=== PATIENT | male | born 1960 | race African-American/Black ===

== ENCOUNTER 2019-08-11 | Emergency (ER) | payer OTHER ==
[~2019-08-11] MED LIST: AMOX/K CLAV875 M1 PO; POLYTRIM OU; VOSOL2 % OT
[2019-08-11 01:28] LABS: IMMATURE GRANULOCYTES 0.3 % (0.0-5.0); MEAN CELL VOLUME 79.9 fL CALC (80.0-100.0); MEAN CORPUSCULAR HGB 26.3 pG CALC (26.0-32.0); MEAN CORPUSCULAR HGB CONC 32.9 g/L CALC (32.0-36.0); NEUT# 4.02 thou/uL (1.82-7.42); RED BLOOD COUNT 4.38 mill/uL (4.70-6.10); RED CELL DISTRI WIDTH 13.1 % (11.5-15.5)
[2019-08-11 01:31] LABS: HEMOGLOBIN 11.5 g/dl (14.0-18.0)
[2019-08-11 01:32] LABS: URINE BILIRUBIN - DIPSTICK NEGATIVE (NEGATIVE); URINE BLOOD DIPSTICK MODERATE (NEGATIVE); URINE COLOR YELLOW; URINE GLUCOSE - DIPSTICK >=1000 mg/dL (NEGATIVE); URINE KETONE NEGATIVE (NEGATIVE); URINE LEUK ESTERASE NEGATIVE (NEGATIVE); URINE PROTEIN - DIPSTICK 100 mg/dL (NEG-TRACE); URINE SPECIFIC GRAVITY 1.015; URINE UROBILINOGEN - DIPSTICK 0.2 E.U./dL (0.2)
[2019-08-11 01:35] LABS: COCAINE NEGATIVE (NEGATIVE); METHADONE NEGATIVE (NEGATIVE); TETRAHYDROCANNABIONOL NEGATIVE (NEGATIVE); TRICYLIC ANTIDEPRESSANTS NEGATIVE (NEGATIVE); URINE NITRITE - DIPSTICK NEGATIVE (Negative)
[2019-08-11 01:36] LABS: BARBITURATES NEGATIVE (NEGATIVE); OXCYCODONE NEGATIVE (NEGATIVE)
[2019-08-11 01:39] LABS: URINE BACTERIA FEW hpf; URINE EPITHELIAL CELLS FEW EPI/hpf (0-FEW)
[2019-08-11 02:03] LABS: ALBUMIN 3.9 g/dL (3.2-5.0); CREATININE 1.6 mg/dL (0.7-1.3); TOTAL PROTEIN 8.2 g/dL (6.3-8.2)
[2019-08-11 02:14] LABS: POTASSIUM 3.1 mmol/l (3.5-5.1)
== END 2019-08-11 03:38 | disposition short-term general hospital (02) | DRG 101 ==
PROVIDERS: Emergency Medicine
DX: R56.9 Unspecified convulsions (principal); I10 Essential (primary) hypertension; E11.65 Type 2 diabetes mellitus with hyperglycemia; R79.89 Other specified abnormal findings of blood chemistry; Z91.14 Patient's other noncompliance with medication regimen

== ENCOUNTER 2020-09-01 17:55 | Emergency (ER) | payer OTHER ==
[~2020-09-01] VITALS: Ht 175.3 cm; Wt 78.9 kg
[2020-09-01 18:39] LABS: HEMATOCRIT 39.3 % (39.0-50.0); HEMOGLOBIN 12.6 g/dl (14.0-18.0); MEAN CELL VOLUME 83.8 fL CALC (80.0-100.0); MEAN CORPUSCULAR HGB 26.9 pG CALC (26.0-32.0); MEAN CORPUSCULAR HGB CONC 32.1 g/dL CAL (32.0-36.0); NEUT# 3.26 thou/uL (1.82-7.42); RED BLOOD COUNT 4.69 mill/uL (4.70-6.10); RED CELL DISTRI WIDTH 13.2 % (11.5-15.5)
[2020-09-01 18:55] LABS: ALBUMIN 3.4 g/dL (3.2-5.0); MAGNESIUM 1.8 mg/dL (1.6-2.3)
[2020-09-01 18:58] LABS: ACT PARTIAL THROMBO TIME 26.5 SECONDS (20.0-32.5); CREATININE 3.1 mg/dL (0.7-1.3); PROTHROMBIN TIME 10.4 SECONDS (9.0-12.5)
[2020-09-01 18:59] LABS: BILIRUBIN, TOTAL 0.4 mg/dL (0.0-1.4)
[2020-09-01] MEDS ORDERED: CLONIDINE0.1 MG PO (18:59)
[2020-09-01] MEDS ORDERED: POTASSIUM CHLO20 ME2 PO (18:59)
[2020-09-01 19:00] LABS: POTASSIUM 7.1 mmol/l (3.5-5.1)
[2020-09-01] MEDS ORDERED: MAXZIDE-2537.5 MG/TA PO (19:00)
[2020-09-01] MEDS ORDERED: LOPRESSOR50 M1 PO (19:00)
[2020-09-01] MEDS ORDERED: LOSARTAN POTASS50 MG PO (19:01)
[2020-09-01] MEDS ORDERED: NORVASC5 M1 PO (19:01)
[2020-09-01] MEDS ORDERED: EC ASPIRIN325 MG PO (19:02)
[2020-09-01 19:34] VITALS: BP 189/105
== END 2020-09-01 19:36 | disposition short-term general hospital (02) | DRG 66 ==
LOC: ED 17:55
DX: I63.9 Cerebral infarction, unspecified (principal); R47.01 Aphasia; G83.14 Monoplegia of lower limb affecting left nondominant side; R29.712 NIHSS score 12; I10 Essential (primary) hypertension; E11.9 Type 2 diabetes mellitus without complications; F17.200 Nicotine dependence, unspecified, uncomplicated; Z20.822 Contact with and (suspected) exposure to COVID-19

== ENCOUNTER 2021-04-15 19:55 | Emergency (ER) | payer OTHER ==
[~2021-04-15] VITALS: Ht 175.3 cm; Wt 89.0 kg
[~2021-04-15 19:55] MED LIST changes: +CLONIDINE0.1 MG PO; +EC ASPIRIN325 MG PO; +LOPRESSOR50 M1 PO; +LOSARTAN POTASS50 MG PO; +MAXZIDE-2537.5 MG/TA PO; +NORVASC5 M1 PO; +POTASSIUM CHLO20 ME2 PO
[2021-04-15 20:19] VITALS: BP 222/109
[2021-04-15] MEDS ORDERED: CLONIDINE0.1 MG PO (21:17)
[2021-04-15] MEDS ORDERED: LASIX 40 MG TAB40 MG PO (21:18)
[2021-04-15] MEDS ORDERED: NIFEDIPINE60 MG PO (21:18)
[2021-04-15] MEDS ORDERED: HYDRALAZINE100 MG PO (21:18)
[2021-04-15] MEDS ORDERED: GABAPENTIN100 MG PO (21:19)
[2021-04-15] MEDS ORDERED: LIPITOR80 M1 PO (21:19)
[2021-04-15] MEDS ORDERED: GLIPIZIDE ER5 MG PO (21:20)
[2021-04-15 21:35] LABS: HEMATOCRIT 34.9 % (39.0-50.0); IMMATURE GRANULOCYTES 0.4 % (0.0-5.0); MEAN CELL VOLUME 86.6 fL CALC (80.0-100.0); MEAN CORPUSCULAR HGB 27.3 pG CALC (26.0-32.0); MEAN CORPUSCULAR HGB CONC 31.5 g/dL CAL (32.0-36.0); NEUT# 3.41 thou/uL (1.82-7.42); RED BLOOD COUNT 4.03 mill/uL (4.70-6.10); RED CELL DISTRI WIDTH 13.1 % (11.5-15.5)
[2021-04-15 21:43] LABS: ALBUMIN 4.2 g/dL (3.2-5.0); CREATININE 3.8 mg/dL (0.7-1.3); POTASSIUM 4.4 mmol/l (3.5-5.1); TOTAL PROTEIN 8.2 g/dL (6.3-8.2)
[2021-04-15 21:44] LABS: BILIRUBIN, TOTAL 0.7 mg/dL (0.0-1.4)
[2021-04-21] MEDS ORDERED: LABETALOL HYDR200 MG PO (10:43)
[2021-04-21] MEDS ORDERED: ASPIRIN81 MG PO (10:44)
[2021-04-21] MEDS ORDERED: CLONIDINE0.1 MG PO (10:44)
[2021-04-21] MEDS ORDERED: NIFEDIPINE60 MG PO (10:44)
== END 2021-04-16 00:30 | disposition home or self-care (01) | DRG 305 ==
LOC: ED 19:55 → ED-I 20:37 → ED 20:37 → ED-I 21:47 → ED 04-16 00:30
PROVIDERS: Emergency Medicine
DX: I10 Essential (primary) hypertension (principal); E11.9 Type 2 diabetes mellitus without complications; F17.200 Nicotine dependence, unspecified, uncomplicated; Z79.84 Long term (current) use of oral hypoglycemic drugs; Z20.822 Contact with and (suspected) exposure to COVID-19

== ENCOUNTER → 2021-04-16 | Outpatient (REF) | payer OTHER ==
[~2021-04-16] MED LIST changes: +ASPIRIN81 MG PO; +GABAPENTIN100 MG PO; +GLIPIZIDE ER5 MG PO; +HYDRALAZINE100 MG PO; +LABETALOL HYDR200 MG PO; +LASIX 40 MG TAB40 MG PO; +LIPITOR80 M1 PO; +NIFEDIPINE60 MG PO
== END | disposition home or self-care (01) | DRG 684 ==
LOC: LAB 12:17
PROVIDERS: ATTEND Internal Medicine Nephrology
DX: N18.5 Chronic kidney disease, stage 5 (principal); K71.8 Toxic liver disease with other disorders of liver

== ENCOUNTER 2021-05-17 10:12 | Emergency (ER) | payer OTHER ==
[~2021-05-17] VITALS: Ht 152.4 cm; Wt 70.0 kg
[2021-05-17 11:03] LABS: MEAN CELL VOLUME 87.6 fL CALC (80.0-100.0); MEAN CORPUSCULAR HGB 27.4 pG CALC (26.0-32.0); MEAN CORPUSCULAR HGB CONC 31.3 g/dL CAL (32.0-36.0); NEUT# 3.74 thou/uL (1.82-7.42); RED BLOOD COUNT 2.26 mill/uL (4.70-6.10); RED CELL DISTRI WIDTH 12.9 % (11.5-15.5)
[2021-05-17 11:15] LABS: ALBUMIN 3.7 g/dL (3.2-5.0); TOTAL PROTEIN 7.1 g/dL (6.3-8.2)
[2021-05-17 11:17] LABS: BILIRUBIN, TOTAL 0.3 mg/dL (0.0-1.4); HEMATOCRIT 19.8 % (39.0-50.0); HEMOGLOBIN 6.2 g/dl (14.0-18.0)
[2021-05-17 11:18] LABS: CREATININE 5.1 mg/dL (0.7-1.3)
[2021-05-17 12:55] VITALS: BP 120/67
[2021-05-17 13:55] VITALS: BP 120/68
[2021-05-17 14:45] VITALS: BP 126/71
[2021-05-17 15:00] VITALS: BP 126/71
== END 2021-05-17 15:00 | disposition short-term general hospital (02) | DRG 812 ==
LOC: ED 10:12
PROVIDERS: Family Medicine
PROC: 30233N1 Transfusion of Nonautologous Red Blood Cells into Peripheral Vein, Percutaneous Approach (ICD-10-PCS; principal; 2021-05-17)
PROC: 30233N1 Transfusion of Nonautologous Red Blood Cells into Peripheral Vein, Percutaneous Approach (ICD-10-PCS; 2021-05-17)
DX: D64.9 Anemia, unspecified (principal); I12.9 Hypertensive chronic kidney disease with stage 1 through stage 4 chronic kidney disease, or unspecified chronic kidney disease; E11.22 Type 2 diabetes mellitus with diabetic chronic kidney disease; N18.9 Chronic kidney disease, unspecified; F17.200 Nicotine dependence, unspecified, uncomplicated; Z79.84 Long term (current) use of oral hypoglycemic drugs
CPT/HCPCS: P9016

== ENCOUNTER 2021-12-20 16:16 | Emergency (ER) | payer OTHER ==
[2021-12-20] VITALS (13 sets, daily range): BP systolic 104–132; BP diastolic 53–69
[~2021-12-20] VITALS: Ht 175.3 cm; Wt 70.0 kg
[2021-12-20 17:19] LABS: IMMATURE GRANULOCYTES 0.6 % (0.0-5.0); MEAN CELL VOLUME 88.9 fL CALC (80.0-100.0); MEAN CORPUSCULAR HGB 29.5 pG CALC (26.0-32.0); MEAN CORPUSCULAR HGB CONC 33.1 g/dL CAL (32.0-36.0); NEUT# 5.91 thou/uL (1.82-7.42); RED BLOOD COUNT 1.9 mill/uL (4.70-6.10); RED CELL DISTRI WIDTH 13.6 % (11.5-15.5)
[2021-12-20 17:21] LABS: HEMOGLOBIN 5.6 g/dl (14.0-18.0)
[2021-12-20 17:22] LABS: HEMATOCRIT 16.9 % (39.0-50.0)
[2021-12-20 17:31] LABS: ALBUMIN 3.9 g/dL (3.2-5.0); BILIRUBIN, TOTAL 0.4 mg/dL (0.0-1.4)
[2021-12-20 17:33] LABS: CREATININE 3.1 mg/dL (0.7-1.3); POTASSIUM 3.3 mmol/l (3.5-5.1)
== END 2021-12-20 22:00 | DRG 811 ==
LOC: ED 16:16
PROVIDERS: Nurse Practitioner
PROC: 30233N1 Transfusion of Nonautologous Red Blood Cells into Peripheral Vein, Percutaneous Approach (ICD-10-PCS; principal; 2021-12-20)
PROC: 30233N1 Transfusion of Nonautologous Red Blood Cells into Peripheral Vein, Percutaneous Approach (ICD-10-PCS; 2021-12-20)
DX: D64.9 Anemia, unspecified (principal); N18.6 End stage renal disease; I12.0 Hypertensive chronic kidney disease with stage 5 chronic kidney disease or end stage renal disease; R19.5 Other fecal abnormalities; E11.22 Type 2 diabetes mellitus with diabetic chronic kidney disease; F17.200 Nicotine dependence, unspecified, uncomplicated; Z99.2 Dependence on renal dialysis; Z79.84 Long term (current) use of oral hypoglycemic drugs; Z20.822 Contact with and (suspected) exposure to COVID-19
CPT/HCPCS: P9016

== ENCOUNTER 2022-08-12 13:18 | Emergency (ER) | payer OTHER, MEDICARE ==
[~2022-08-12] VITALS: Ht 175.3 cm; Wt 85.0 kg
[2022-08-12] VITALS (22 sets, daily range): BP systolic 126–161; BP diastolic 82–92
[2022-08-12 13:57] LABS: BASO% 0.3 % (0-3); EOS% 1.3 % (0-8); IMMATURE GRANULOCYTES 0.8 % (0.0-5.0); LYMPH% 7.4 % (15-41); MEAN CELL VOLUME 87.9 fL CALC (80.0-100.0); MEAN CORPUSCULAR HGB 29.8 pG CALC (26.0-32.0); MEAN CORPUSCULAR HGB CONC 33.9 g/dL CAL (32.0-36.0); MONO% 9.2 % (2-13); NEUT# 5.72 thou/uL (1.82-7.42); RED BLOOD COUNT 3.46 mill/uL (4.70-6.10); RED CELL DISTRI WIDTH 13.2 % (11.5-15.5)
[2022-08-12 13:59] LABS: HEMATOCRIT 30.4 % (39.0-50.0); HEMOGLOBIN 10.3 g/dl (14.0-18.0)
[2022-08-12 14:20] LABS: ALBUMIN 4.4 g/dL (3.2-5.0)
[2022-08-12 14:26] LABS: BILIRUBIN, TOTAL 0.6 mg/dL (0.0-1.4); POTASSIUM 4.6 mmol/l (3.5-5.1); TOTAL PROTEIN 9.4 g/dL (6.3-8.2)
[2022-08-12 14:30] LABS: CREATININE 13.4 mg/dL (0.7-1.3)
== END 2022-08-12 18:54 | DRG 698 ==
LOC: ED 13:18
PROVIDERS: Family Medicine
DX: T82.49XA Other complication of vascular dialysis catheter, initial encounter (principal); N18.6 End stage renal disease; I12.0 Hypertensive chronic kidney disease with stage 5 chronic kidney disease or end stage renal disease; Z99.2 Dependence on renal dialysis; E11.22 Type 2 diabetes mellitus with diabetic chronic kidney disease

== ENCOUNTER 2023-10-03 06:24 | Emergency (ER) | payer OTHER, MEDICARE ==
[~2023-10-03] VITALS: Ht 175.3 cm; Wt 107.7 kg
[2023-10-03] VITALS (40 sets, daily range): BP systolic 91–147; BP diastolic 51–121
[2023-10-03] MEDS ORDERED: amioDARONE HCl 150 MG/3 ML SDV IV ONE (06:39)
[2023-10-03] MEDS ORDERED: SODIUM CHLORIDE 250 ML IV ONE (06:40)
[2023-10-03] MEDS ORDERED: SODIUM CHLORIDE 0.9% 500 ML IV ONE ×2 (06:45→07:00)
[2023-10-03] MEDS ORDERED: amioDARONE HCl 450 MG in SODIUM CHLORIDE 250 ML IV ONE (06:45)
[2023-10-03] MEDS ORDERED: PROPOFOL 100 ML IV ONE (06:50)
[2023-10-03 06:54] LABS: BASO% 0.4 % (0-3); EOS% 2.6 % (0-8); HEMATOCRIT 39.2 % (39.0-50.0); HEMOGLOBIN 11.8 g/dl (14.0-18.0); IMMATURE GRANULOCYTES 1.1 % (0.0-5.0); LYMPH% 35.3 % (15-41); MEAN CELL VOLUME 99.7 fL CALC (80.0-100.0); MEAN CORPUSCULAR HGB CONC 30.1 g/dL CAL (32.0-36.0); MONO% 6.1 % (2-13); NEUT# 4.06 thou/uL (1.82-7.42); NEUT% 54.5 % (42-76); RED BLOOD COUNT 3.93 mill/uL (4.70-6.10); RED CELL DISTRI WIDTH 16.8 % (11.5-15.5)
[2023-10-03 07:17] LABS: POTASSIUM 4.9 mmol/l (3.5-5.1); TOTAL PROTEIN 8.2 g/dL (6.3-8.2)
[2023-10-03] MEDS ORDERED: PIPERACILLIN Sodium-Tazobactam 3.375 GM in SODIUM CHLORIDE 0.9% 100 ML IV ONE (07:20)
[2023-10-03 07:22] LABS: ACT PARTIAL THROMBO TIME 29.4 SECONDS (20.0-32.5); PROTHROMBIN TIME 12.9 SECONDS (9.0-12.5)
[2023-10-03 07:24] LABS: INTERNATIONAL NORMALIZED RATIO 1.4 RATIO (0.7-1.3)
[2023-10-03 07:28] LABS: BILIRUBIN, TOTAL 1.1 mg/dL (0.2-1.3); CREATININE 7.9 mg/dL (0.7-1.3); MAGNESIUM 2.4 mg/dL (1.6-2.3)
[2023-10-03] MEDS ORDERED: SODIUM CHLORIDE 0.9% 1,000 ML BAG IV ONE (07:29)
[2023-10-03] MEDS ORDERED: EPINEPHrine HCL 0.1 MG/ML 10 ML SYR IV ONE (07:29)
[2023-10-03 07:35] LABS: URINE BILIRUBIN - DIPSTICK Negative (NEGATIVE); URINE BLOOD DIPSTICK Trace-intact (NEGATIVE); URINE GLUCOSE - DIPSTICK Negative (NEGATIVE); URINE KETONE Negative (NEGATIVE); URINE LEUK ESTERASE Negative (NEGATIVE); URINE NITRITE - DIPSTICK Negative (Negative); URINE PROTEIN - DIPSTICK >=300 mg/dL (NEG-TRACE)
[2023-10-03 07:41] LABS: URINE COLOR Yellow
[2023-10-03 08:03] LABS: URINE RBC 0-2 RBC/hpf (0-5)
[2023-10-03 08:04] LABS: URINE SPERM MODERATE hpf (NONE-RARE)
[2023-10-03 09:02] LABS: D-DIMER > 35.20 mg/L (0.19-0.60)
== END 2023-10-03 08:10 | DRG 308 ==
LOC: ED 06:24
PROVIDERS: Family Medicine
PROC: 0BH17EZ Insertion of Endotracheal Airway into Trachea, Via Natural or Artificial Opening (ICD-10-PCS; principal; 2023-10-03)
PROC: 5A1935Z Respiratory Ventilation, Less than 24 Consecutive Hours (ICD-10-PCS; 2023-10-03)
PROC: 06HY33Z Insertion of Infusion Device into Lower Vein, Percutaneous Approach (ICD-10-PCS; 2023-10-03)
PROC: 0T9B70Z Drainage of Bladder with Drainage Device, Via Natural or Artificial Opening (ICD-10-PCS; 2023-10-03)
DX: I49.01 Ventricular fibrillation (principal); N18.6 End stage renal disease; I12.0 Hypertensive chronic kidney disease with stage 5 chronic kidney disease or end stage renal disease; I46.2 Cardiac arrest due to underlying cardiac condition; E11.22 Type 2 diabetes mellitus with diabetic chronic kidney disease; Z99.2 Dependence on renal dialysis; Z79.84 Long term (current) use of oral hypoglycemic drugs; Z72.0 Tobacco use; Z20.822 Contact with and (suspected) exposure to COVID-19
CPT/HCPCS: J0282

== ENCOUNTER 2024-10-14 12:30 | Emergency (ER) | payer MEDICARE, BC ==
[2024-10-14] VITALS (8 sets, daily range): BP systolic 85–106; BP diastolic 46–70
[~2024-10-14] VITALS: Ht 175.3 cm; Wt 68.0 kg
[2024-10-14] MEDS ORDERED: DIATRIZOATE MEGLUMINE & SODIUM 30 ML/BTL VT ONE (13:10)
== END 2024-10-14 14:38 | disposition home or self-care (01) ==
LOC: ED 12:30
PROC: 0DH63UZ Insertion of Feeding Device into Stomach, Percutaneous Approach (ICD-10-PCS; principal; 2024-10-14)
DX: Z46.59 Encounter for fitting and adjustment of other gastrointestinal appliance and device (principal); I12.0 Hypertensive chronic kidney disease with stage 5 chronic kidney disease or end stage renal disease; E11.22 Type 2 diabetes mellitus with diabetic chronic kidney disease; N18.6 End stage renal disease; Z86.73 Personal history of transient ischemic attack (TIA), and cerebral infarction without residual deficits; Z51.5 Encounter for palliative care; Z79.84 Long term (current) use of oral hypoglycemic drugs; Z72.0 Tobacco use

== ENCOUNTER 2024-10-26 19:35 | Emergency (ER) | payer MEDICARE, BC ==
[2024-10-26] MEDS ORDERED: SODIUM CHLORIDE 0.9% 1,000 ML IV ONE (19:45)
[2024-10-26] MEDS ORDERED: amioDARONE HCl 450 MG in SODIUM CHLORIDE 250 ML IV ONE (19:55)
[2024-10-26] MEDS ORDERED: SODIUM CHLORIDE 0.9% 250 ML IV PRN ×2 (19:55)
[2024-10-26 20:07] LABS: BASO% 0.4 % (0-3); EOS% 1.5 % (0-8); HEMATOCRIT 34.7 % (39.0-50.0); HEMOGLOBIN 10.4 g/dl (14.0-18.0); IMMATURE GRANULOCYTES 0.5 % (0.0-5.0); LYMPH% 27.2 % (15-41); MEAN CELL VOLUME 91.3 fL CALC (80.0-100.0); MEAN CORPUSCULAR HGB 27.4 pG CALC (26.0-32.0); NEUT# 9.36 thou/uL (1.82-7.42); NEUT% 66.4 % (42-76); RED BLOOD COUNT 3.8 mill/uL (4.70-6.10); RED CELL DISTRI WIDTH 15.7 % (11.5-15.5)
[2024-10-26 20:13] VITALS: BP 97/67
[2024-10-26 20:15] VITALS: BP 92/59
[2024-10-26 20:19] LABS: ALBUMIN 3.4 g/dL (3.2-5.0); BILIRUBIN, TOTAL 0.9 mg/dL (0.2-1.3); CREATININE 3.8 mg/dL (0.7-1.3); POTASSIUM 3.8 mmol/l (3.5-5.1); TOTAL PROTEIN 7.9 g/dL (6.3-8.2)
[2024-10-26 20:20] LABS: MAGNESIUM 3.5 mg/dL (1.6-2.3)
[2024-10-26 20:28] LABS: INTERNATIONAL NORMALIZED RATIO 1.1 RATIO (0.7-1.3)
[2024-10-26 20:29] LABS: ACT PARTIAL THROMBO TIME 35.3 SECONDS (20.0-32.5); PROTHROMBIN TIME 11.8 SECONDS (9.0-12.5)
[2024-10-26 20:31] VITALS: BP 48/26
[2024-10-27] MEDS ORDERED: SODIUM CHLORIDE 0.9% 250 ML IV PRN ×2 (02:30)
== END 2024-10-26 20:38 | disposition expired ==
LOC: ED 19:35
PROVIDERS: Family Medicine
PROC: 0T9B70Z Drainage of Bladder with Drainage Device, Via Natural or Artificial Opening (ICD-10-PCS; principal; 2024-10-26)
DX: I46.9 Cardiac arrest, cause unspecified (principal); I12.0 Hypertensive chronic kidney disease with stage 5 chronic kidney disease or end stage renal disease; E11.22 Type 2 diabetes mellitus with diabetic chronic kidney disease; N18.6 End stage renal disease; Z99.2 Dependence on renal dialysis; Z79.84 Long term (current) use of oral hypoglycemic drugs; Z93.1 Gastrostomy status; Z51.5 Encounter for palliative care; Z66 Do not resuscitate
CPT/HCPCS: J0282